=== PATIENT | male | born 1985 | race Caucasian/White ===

== ENCOUNTER 2017-02-26 00:10 | Emergency (ER) | payer SELFPAY ==
[2017-02-26 02:25] VITALS: BP 110/64
== END 2017-02-26 08:35 | disposition home or self-care (01) ==
LOC: ER 00:10
DX: F10.20 Alcohol dependence, uncomplicated (principal); F12.90 Cannabis use, unspecified, uncomplicated; F17.200 Nicotine dependence, unspecified, uncomplicated
CPT/HCPCS: 99282

== ENCOUNTER 2017-12-29 15:55 | Emergency (ER) | payer SELFPAY ==
[2017-12-29] MEDS ORDERED: KETOROLAC TROMETHAMINE INJ/PF 30 MG/1 ML SDV IV ONE (17:15)
[2017-12-29] MEDS ORDERED: ONDANSETRON ODT 4 MG TAB (6 TAB/ER DISP) PO PRN (17:15)
[2017-12-29] MEDS ORDERED: NORMAL SALINE 1000 ML 1,000 ML IV ONE (17:15)
--- NOTE | 2017-12-29 17:16 | ER Document Report ---
ED Medical Screen (RME) - General Chief Complaint: Upper Abdominal Pain Stated Complaint: ABDOMINAL PAIN Time Seen by Provider: 12/29/17 17:14 Mode of Arrival: Ambulatory Information source: Patient Notes: Patient presents with right upper quadrant epigastric pain. Also had some vomiting. He states he does drink alcohol almost daily. He denies any fevers. TRAVEL OUTSIDE OF THE [place] IN LAST 30 DAYS: No - Related Data Allergies/Adverse Reactions: No Known Allergies Allergy (Unverified 12/29/17 15:56) Past Medical History - Social History Chew tobacco use (# tins/day): No Frequency of alcohol use: Heavy Drug Abuse: None Renal/ Medical History: Denies: Hx Peritoneal Dialysis Physical Exam - Vital signs Vitals: Temp Pulse Resp BP Pulse Ox 98.9 F 79 16 123/75 99 12/29/17 16:04 12/29/17 16:04 12/29/17 16:04 12/29/17 16:04 12/29/17 16:04 Course - Vital Signs Vital signs: Temp Pulse Resp BP Pulse Ox 98.9 F 79 16 123/75 99 12/29/17 16:04 12/29/17 16:04 12/29/17 16:04 12/29/17 16:04 12/29/17 16:04
[2017-12-29 17:47] LABS: ABSOLUTE EOSINOPHILS # (AUTO) 0.2 10^3/uL (0.0-0.6); ABSOLUTE LYMPHOCYTES (AUTO) 1.4 10^3/uL (0.5-4.7); ABSOLUTE MONOCYTES (AUTO) 0.8 10^3/uL (0.1-1.4); ABSOLUTE NEUT (AUTO) 4.9 10^3/uL (1.7-8.2); BASOPHILS % (AUTO) 0.2 % (0-2); EOSINOPHILS % (AUTO) 3.3 % (0-6); HEMATOCRIT 47.7 % (37.9-51.0); HEMOGLOBIN 16.1 g/dL (13.5-17.0); MEAN CORPUSCULAR HEMOGLOBIN 32.7 pg (27.0-33.4); MEAN CORPUSCULAR HGB CONC 33.8 g/dL (32.0-36.0); MEAN CORPUSCULAR VOLUME 97 fl (80-97); MONOCYTES % (AUTO) 10.8 % (3-13); PLATELET COUNT 207 10^3/uL (150-450); RED BLOOD COUNT 4.93 10^6/uL (4.35-5.55); RED CELL DISTRIBUTION WIDTH 13.3 % (11.5-14.0); SEGMENTED NEUTROPHILS % (AUTO) 66.7 % (42-78); TOTAL CELLS COUNTED % (AUTO) 100 %; WHITE BLOOD COUNT 7.3 10^3/uL (4.0-10.5)
[2017-12-29 17:54] LABS: ALANINE AMINOTRANSFERASE 137 U/L (21-72); ALBUMIN 4.1 g/dL (3.5-5.0); ALKALINE PHOSPHATASE 64 U/L (38-126); ANION GAP 9 (5-19); ASPARTATE AMINO TRANSFERASE 75 U/L (17-59); BILIRUBIN,DIRECT 0.3 mg/dL (0.0-0.4); BILIRUBIN,TOTAL 0.4 mg/dL (0.2-1.3); BLOOD UREA NITROGEN 10 mg/dL (7-20); CALCIUM 9.3 mg/dL (8.4-10.2); CARBON DIOXIDE 28 mmol/L (22-30); CHLORIDE 102 mmol/L (98-107); GLUCOSE 86 mg/dL (75-110); LIPASE 98.2 U/L (23-300); POTASSIUM 3.7 mmol/L (3.6-5.0); SODIUM 139.1 mmol/L (137-145); TOTAL PROTEIN 7.3 g/dL (6.3-8.2)
[2017-12-29 17:55] LABS: ALCOHOL < 10 mg/dL (NONE DETECTED)
--- NOTE | 2017-12-29 18:59 | RADIOLOGY REPORT (SQ) ---
EXAM DESCRIPTION: U/S ABDOMEN LIMITED W/O DOP COMPLETED DATE/TIME: 12/29/2017 6:36 pm REASON FOR STUDY: ruq pain COMPARISON: None. TECHNIQUE: Dynamic and static grayscale images acquired of the abdomen and recorded on PACS. Additio nal selected color Doppler and spectral images recorded. LIMITATIONS: None. FINDINGS: PANCREAS: Questionable 2 cm mass in the head of the pancreas. Apparent dilatation of main pancreatic duct. LIVER: 18 cm. Increased echogenicity. LIVER VASCULATURE: Normal directional flow of the main portal vein and hepatic veins. GALLBLADDER: Contracted. No stones are seen. The wall is thickened at 4.2 mm. ULTRASOUND-DETECTED JOYNER'S SIGN: Positive. INTRAHEPATIC DUCTS AND COMMON DUCT: CBD and intrahepatic ducts normal caliber. No filling defects. INFERIOR VENA CAVA: Normal flow. AORTA: Obscured by overlying bowel gas. RIGHT KIDNEY: Normal size 11 cm. Normal echogenicity. No solid or suspicious masses. No hydronephros is. Possible nonobstructing intrarenal calculus. PERITONEAL AND RIGHT PLEURAL SPACE: No ascites or effusions. OTHER: No other significant findings. IMPRESSION: 1. Fatty infiltration of the liver. Hepatomegaly. 2. Questionable 2 cm mass in the head of the pancreas. Consider CT without and with contrast. 3. Contracted gallbladder with no stones. There is thickening of the gallbladder wall and a positiv e sonographic Joyner's sign. 4. Possible intrarenal calculus in the right kidney. TECHNICAL DOCUMENTATION: JOB ID: [id number] [employer]- All Rights Reserved Reading location - IP/workstation name: [email or web address]
--- NOTE | 2017-12-29 19:20 | ER Document Report ---
ED General - General Chief Complaint: Upper Abdominal Pain Stated Complaint: ABDOMINAL PAIN Time Seen by Provider: 12/29/17 17:14 Mode of Arrival: Ambulatory Notes: Patient is a 32-year-old male with a past history of chronic alcohol abuse who presents with 24 hours of epigastric and right upper quadrant abdominal pain. Pain has been worsening since onset. He describes this as a burning, throbbing , pain to his upper abdomen. Nothing improves the pain. He denies a history of similar pain in the past. He states that this pain got worse after he took [place] last night. He states that he has been able to eat and drink today without any significant change in the pain. He has not seen his primary doctor regarding today's concerns. He denies any vomiting although has been nauseated. No chest pain or shortness of breath. No pleuritic pain. History of DVT or pulmonary embolus. No history of chemotherapy use. TRAVEL OUTSIDE OF THE [place] IN LAST 30 DAYS: No - Related Data Allergies/Adverse Reactions: No Known Allergies Allergy (Unverified 12/29/17 15:56) Past Medical History - General Information source: Patient - Social History Smoking Status: Current Every Day Smoker Chew tobacco use (# tins/day): No Frequency of alcohol use: Heavy Drug Abuse: None Lives with: Spouse/Significant other Family History: Reviewed & Not Pertinent Patient has suicidal ideation: No Patient has homicidal ideation: No Renal/ Medical History: Denies: Hx Peritoneal Dialysis Review of Systems - Review of Systems Notes: Constitutional: Negative for fever. HENT: Negative for sore throat. Eyes: Negative for visual changes. Cardiovascular: Negative for chest pain. Respiratory: Negative for shortness of breath. Gastrointestinal: Positive for abdominal pain and nausea Genitourinary: Negative for dysuria. Musculoskeletal: Negative for back pain. Skin: Negative for rash. Neurological: Negative for headaches, weakness or numbness. 10 point ROS negative except as marked above and in HPI. Physical Exam - Vital signs Vitals: Temp Pulse Resp BP Pulse Ox 98.9 F 79 16 123/75 99 12/29/17 16:04 12/29/17 16:04 12/29/17 16:04 12/29/17 16:04 12/29/17 16:04 Interpretation: Normal Notes: PHYSICAL EXAMINATION: GENERAL: Well-appearing, well-nourished and in no acute distress. HEAD: Atraumatic, normocephalic. EYES: Pupils equal round and reactive to light, extraocular movements intact, sclera anicteric, conjunctiva are normal. ENT: nares patent, oropharynx clear without exudates. Moderately dry mucous membranes. NECK: Normal range of motion, supple without lymphadenopathy LUNGS: Breath sounds clear to auscultation bilaterally and equal. No wheezes rales or rhonchi. HEART: Regular rate and rhythm without murmurs ABDOMEN: Soft, focal tenderness on palpation of the epigastrium, minimal to no tenderness on palpation of right upper quadrant. No rebound or guarding. EXTREMITIES: Normal range of motion, no pitting or edema. No cyanosis. NEUROLOGICAL: No focal neurological deficits. Moves all extremities spontaneously and on command. PSYCH: Moderately anxious SKIN: Warm, Dry, normal turgor, no rashes or lesions noted. Course - Re-evaluation Re-evalutation: 12/29/17 19:19 Patient presents with epigastric abdominal pain with associated reflux symptoms most consistent with likely gastritis. Patient has tenderness to the epigastrium but no tenderness the right upper quadrant. Ultrasound obtained in triage does show a thickened gallbladder wall as well as findings consistent with chronic alcohol use to which the patient does admit but his clinical history is not at all consistent with biliary pathology. The patient was able to eat a cinnabon today as well as fried chicken and had no increase in his pain. Moreover the pain has been continuous since yesterday and has been unaffected by eating fatty foods. He does not have a Joyner sign on examination at the bedside. Lipase is normal. No significant LFT changes. There was a questionable mass seen at the head of the pancreas on the ultrasound and I therefore recommended to the patient that we obtain a CT scan to further evaluate this as a potential etiology of his pain as well as to make sure that this would not be consistent with pancreatic cancer. However, the patient is declining the CT scan stating he does not have insurance, does not want this added to his bill, and thinks that he does not likely have cancer. I have expressed the patient that there is a very good chance that this is a cyst however I have informed him recurrently that I cannot definitively exclude a life-threatening etiology of this mass and I strongly encouraged him to obtain a CT scan here in the emergency department. I also explained that we would want to confirm if he had a pancreatic pseudo-cyst or cyst. However, he is declined stating that he wants to go, would like to go smoke, and does not want to increase his bill. He has capacity. He is able to understand and verbalize that this is a risky decision that could result in him having a significantly worsened clinical outcome including metastatic cancer, worsening pancreatic disease, or even . At this time will discharge with return precautions and follow-up recommendations. Verbal discharge instructions given a the bedside and opportunity for questions given. Medication warnings reviewed. Patient is in agreement with this plan and has verbalized understanding of return precautions and the need for primary care follow-up in the next 24-72 hours. - Vital Signs Vital signs: Temp Pulse Resp BP Pulse Ox 97.7 F 62 16 112/63 99 12/29/17 19:50 12/29/17 19:50 12/29/17 19:50 12/29/17 19:50 12/29/17 16:04 - Laboratory Result Diagrams: 12/29/17 17:23 12/29/17 17:23 Laboratory results interpreted by me: 12/29/17 17:23 AST 75 H ALT 137 H - Diagnostic Test Radiology reviewed: Reports reviewed Discharge - Discharge Clinical Impression: Upper abdominal pain, Hepatomegaly, Alcohol abuse, Pancreatic mass Condition: Stable Disposition: HOME, SELF-CARE Additional Instructions: Your symptoms appear to be most consistent with stomach or upper intestinal irritation. Please begin taking famotidine 40 mg in the morning and 40 mg at night. This medicine can be purchased directly [id number]. You may also take medicine such as Pepto-Bismol or Tums to assist with your pain. Please return to emergency department immediately if you have worsening of your pain, shortness of breath, vomiting, become unable to exert yourself due to pain or difficulty breathing, you pass out, or have any pain that radiates into your arms, jaw, or back. Please also return if you have any additional symptoms that are concerning to you. As we have discussed, the most important thing is lifestyle changes. You need to avoid smoking, sodas, tea, coffee, alcohol, spicy foods, and acidic foods such as citrus fruits, tomato based products, berries, and most fruit juices. As we also discussed, the ultrasound did identify a possible mass of the head of your pancreas. You have declined obtaining a CT scan here in the emergency department to further evaluate this possible mass. I strongly encourage you to find a way to get the CT scan done as an outpatient to further clarify what exactly was seen on the ultrasound. Your also welcome to return to the emergency department anytime to have this test completed if you would like. Prescriptions: Sucralfate [Carafate 1 gm Tablet] 1 gm PO ACHS #120 tablet
[2017-12-29] MEDS ORDERED: LIDOCAINE 2% VISCOUS SOLN 20 ML UDCUP PO ONE (19:33)
[2017-12-29] MEDS ORDERED: MAG HYDROX/AL HYDROX/SIMETH SUSP 30 ML UDCUP PO ONE (19:33)
[2017-12-29] MEDS ORDERED: FAMOTIDINE 20 MG TABLET PO ONE (19:33)
[2017-12-29] MEDS ORDERED: METOCLOPRAMIDE HCL ORAL SOLN 10 MG/10 ML UDCUP PO ONE (19:33)
[2017-12-29 19:51] VITALS: BP 112/63
== END 2017-12-29 19:51 | disposition home or self-care (01) ==
LOC: ER 15:55
DX: R10.11 Right upper quadrant pain (principal); R10.13 Epigastric pain; K86.9 Disease of pancreas, unspecified; R16.0 Hepatomegaly, not elsewhere classified; F10.10 Alcohol abuse, uncomplicated; F17.200 Nicotine dependence, unspecified, uncomplicated
CPT/HCPCS: 99284; 96361; 96374; 36415; 80307; 83690; 85025; 80053; 76705; J3490; J1885; J7030